=== PATIENT | male | born 1955 | race African-American/Black ===

== ENCOUNTER 2018-09-26 12:04 | Inpatient (IN) ==
[2018-09-26] MEDS ORDERED: FUROSEMIDE 100 MG/10 ML VIAL IV STA (12:31)
[2018-09-26 13:37] LABS: Basophils % 0.9 % (0.0-0.8); Eosinophils # 0.1 10*3/uL (0.0-0.87); Eosinophils % 2.3 % (0.00-10.9); Hematocrit 37.5 VOL% (42.0-52.0); Hemoglobin 11.9 GM/DL (14.0-18.0); Immature Granulocytes % 0.2 %; Immature Granulocytes Absolute 0.01 #; Lymphocytes # 0.7 10*3/uL (1.4-4.0); Lymphocytes % 15.4 % (21.2-54.2); Mean Corpuscular HGB Conc 31.7 GM/DL (32-36); Mean Corpuscular Hemoglobin 31 PG (27-34); Mean Corpuscular Volume 96.2 FL (87-102); Mean Platelet Volume 10.7 FL (9.6-12.0); Monocytes # 0.5 10*3/uL (0.11-0.8); Monocytes % 11.6 % (1.7-12.7); Neutrophils # 3.1 10*3/uL (1.4-7.4); Neutrophils % 69.6 % (38.7-73.9); Platelet Count 237 T/CUMM (130-400); Red Cell Distribution Width 13.5 % (9.3-17.3); White Blood Count 4.4 T/CUMM (4-12)
[2018-09-26 13:44] LABS: Apearance,Urine Slightly Hazy (Clear); Bacteria,Urine Occasional /HPF (Few); Bilirubin,Urine Negative (Negative); Blood, Urine Small mg/dL (Negative); Glucose,Urine (UA) Negative (Negative); Ketones,Urine Negative (Negative); Mucus,Urine Occasional /LPF (Occasional); Nitrite,Urine Positive (Negative); Protein,Urine 100 MG/DL; RBC,Urine 1 /HPF (0-4); Urine Color Yellow (Yellow); Urine Specific Gravity 1.014 (1.001-1.035); Urine Urobilinogen < 2.0 EU/DL (0.2-1.0); WBC,Urine 3 /HPF (0-6)
[2018-09-26 13:53] LABS: Albumin 3.6 G/DL (3.4-5.0); Bilirubin,Total 1.5 MG/DL (0.2-1.0); Calcium 8.8 MG/DL (8.5-10.1); Osmolality,Calculated 286.1 MOS/KG (273-304); Potassium 3.3 MMOL/L (3.5-5.1); Total Protein 8.5 G/DL (6.4-8.3)
[2018-09-26 14:05] LABS: Lactic Acid 2.1 MMOL/L (0.4-2.0)
[2018-09-26] MEDS ORDERED: FUROSEMIDE 40 MG/4 ML VIAL IV STA (14:43)
[2018-09-26] MEDS ORDERED: ONDANSETRON 4 MG/2 ML VIAL IV PRN (15:36)
[2018-09-26] MEDS ORDERED: diphenhydrAMINE CAP 25 MG CAPSULE PO PRN (15:36)
[2018-09-26] MEDS ORDERED: POTASSIUM CHLORIDE 20 MEQ TABLET PO PRN (15:49)
[2018-09-26] MEDS ORDERED: POTASSIUM CHLORIDE 20 MEQ TABLET PO ONE (15:49)
[2018-09-26] MEDS ORDERED: ENOXAPARIN 40 MG/0.4 ML SYRINGE SUBCUT SCH (16:00)
[2018-09-26] MEDS: PANTOPRAZOLE 40 MG TABLET PO SCH (17:08)
[2018-09-26] MEDS: ASPIRIN 325 MG TABLET PO SCH (17:08)
[2018-09-26] MEDS: LOSARTAN 25 MG TABLET PO SCH ×2 (19:08→21:12)
[2018-09-26] MEDS: FUROSEMIDE 40 MG/4 ML VIAL IV SCH (21:12)
[2018-09-26] MEDS: CARVEDILOL 25 MG TABLET PO SCH (21:12)
[2018-09-26] MEDS: ENOXAPARIN 150 MG/ML SYRINGE SUBCUT SCH (21:31)
[2018-09-27 04:50] LABS: Basophils % 0.7 % (0.0-0.8); Eosinophils # 0.1 10*3/uL (0.0-0.87); Eosinophils % 2.6 % (0.00-10.9); Hematocrit 34.2 VOL% (42.0-52.0); Hemoglobin 11.1 GM/DL (14.0-18.0); Immature Granulocytes % 0.2 %; Immature Granulocytes Absolute 0.01 #; Lymphocytes # 0.7 10*3/uL (1.4-4.0); Lymphocytes % 17.8 % (21.2-54.2); Mean Corpuscular HGB Conc 32.5 GM/DL (32-36); Mean Corpuscular Hemoglobin 31 PG (27-34); Mean Corpuscular Volume 95.5 FL (87-102); Mean Platelet Volume 10.8 FL (9.6-12.0); Monocytes # 0.4 10*3/uL (0.11-0.8); Monocytes % 10.1 % (1.7-12.7); Neutrophils # 2.9 10*3/uL (1.4-7.4); Neutrophils % 68.6 % (38.7-73.9); Platelet Count 215 T/CUMM (130-400); Red Blood Count 3.58 MC/CUMM (3.8-5.5); Red Cell Distribution Width 13.3 % (9.3-17.3); White Blood Count 4.2 T/CUMM (4-12)
[2018-09-27 05:17] LABS: Albumin 2.9 G/DL (3.4-5.0); Bilirubin,Total 1.7 MG/DL (0.2-1.0); Calcium 8.4 MG/DL (8.5-10.1); Osmolality,Calculated 289.8 MOS/KG (273-304); Potassium 3.3 MMOL/L (3.5-5.1); Risk Ratio 2.69; Total Protein 7.4 G/DL (6.4-8.3); VLDL CHOLESTEROL 10.2 MG/DL
[2018-09-27] MEDS: ASPIRIN 325 MG TABLET PO SCH (08:34)
[2018-09-27] MEDS: CARVEDILOL 25 MG TABLET PO SCH ×2 (08:34→16:21)
[2018-09-27] MEDS: PANTOPRAZOLE 40 MG TABLET PO SCH (08:34)
[2018-09-27] MEDS: FUROSEMIDE 40 MG/4 ML VIAL IV SCH ×3 (08:34→20:47)
[2018-09-27] MEDS: ENOXAPARIN 150 MG/ML SYRINGE SUBCUT SCH ×2 (08:37→20:46)
[2018-09-27] MEDS ORDERED: POTASSIUM CHLORIDE 20 MEQ TABLET PO ONE (08:40)
[2018-09-27] MEDS ORDERED: MAGNESIUM SULF RIDER 4 GM in PREMIX 1 EACH IV PRN (08:41)
[2018-09-27] MEDS ORDERED: hydrALAZINE 25 MG TABLET ONE (12:55)
[2018-09-27] MEDS: MULTIVITAMIN (CENTRUM) TABLET PO SCH (12:57)
[2018-09-27] MEDS: BENZONATATE 100 MG CAPSULE PO PRN (12:57)
[2018-09-27] MEDS: THIAMINE 100 MG TABLET PO SCH (12:58)
[2018-09-27] MEDS: FOLIC ACID 1 MG TABLET PO SCH (12:58)
[2018-09-27] MEDS ORDERED: SKIN HEALING OINT (AQUAPHOR) 50 GM TUBE TOP PRN (14:36)
[2018-09-27] MEDS: cefTRIAXone 1,000 MG in SYRINGE 1 EACH IV SCH (15:00)
[2018-09-27] MEDS: MAGNESIUM SULF RIDER 2 GM in PREMIX 1 EACH IV PRN ×2 (16:24→19:12)
[2018-09-28 06:18] LABS: Osmolality,Calculated 289.1 MOS/KG (273-304); Potassium 3.4 MMOL/L (3.5-5.1)
[2018-09-28] MEDS ORDERED: FUROSEMIDE 40 MG/4 ML VIAL IV SCH (08:00)
[2018-09-28] MEDS: MULTIVITAMIN (CENTRUM) TABLET PO SCH (09:31)
[2018-09-28] MEDS: CARVEDILOL 6.25 MG TABLET PO SCH ×2 (09:31→16:00)
[2018-09-28] MEDS: FOLIC ACID 1 MG TABLET PO SCH (09:31)
[2018-09-28] MEDS: PANTOPRAZOLE 40 MG TABLET PO SCH (09:31)
[2018-09-28] MEDS: LOSARTAN 25 MG TABLET PO SCH (09:31)
[2018-09-28] MEDS: ASPIRIN 325 MG TABLET PO SCH (09:31)
[2018-09-28] MEDS: BENZONATATE 100 MG CAPSULE PO PRN (09:31)
[2018-09-28] MEDS: THIAMINE 100 MG TABLET PO SCH (09:31)
[2018-09-28] MEDS: ENOXAPARIN 150 MG/ML SYRINGE SUBCUT SCH (09:38)
[2018-09-28] MEDS: cefTRIAXone 1,000 MG in SYRINGE 1 EACH IV SCH (14:07)
[2018-09-28] MEDS: DOCUSATE SODIUM 100 MG CAPSULE PO PRN (14:07)
[2018-09-28] MEDS: ALFUZOSIN 10 MG TABLET PO SCH (15:56)
[2018-09-28] MEDS: miSOPROStol 200 MCG TABLET PO SCH ×2 (16:02→20:41)
[2018-09-28 17:55] LABS: Apearance,Urine CLOUDY (Clear); Bilirubin,Urine Negative (Negative); Blood, Urine Negative (Negative); Glucose,Urine (UA) Negative (Negative); Hyaline Casts,Urine 4 /LPF (0-3); Ketones,Urine Negative (Negative); Mucus,Urine Occasional /LPF (Occasional); Nitrite,Urine Negative (Negative); Protein,Urine Negative; RBC,Urine 24 /HPF (0-4); Squamous Epithelial Cell,Urine Occasional /HPF (0-10); Urine Color Amber (Yellow); Urine Specific Gravity 1.016 (1.001-1.035); WBC,Urine 12 /HPF (0-6)
[2018-09-28] MEDS: ISOSORBIDE DINITRATE 20 MG TABLET PO SCH (20:41)
[2018-09-29 03:05] LABS: Calcium 7.3 MG/DL (8.5-10.1); Osmolality,Calculated 284.8 MOS/KG (273-304); Potassium 3.7 MMOL/L (3.5-5.1)
[2018-09-29 03:06] LABS: Calcium 7.2 MG/DL (8.5-10.1); Osmolality,Calculated 284.8 MOS/KG (273-304); Potassium 3.7 MMOL/L (3.5-5.1)
[2018-09-29] MEDS: MAGNESIUM SULF RIDER 2 GM in PREMIX 1 EACH IV PRN (03:16)
[2018-09-29] MEDS ORDERED: ACETYLCYSTEINE 600 MG CAPSULE PO SCH (09:00)
[2018-09-29] MEDS: MULTIVITAMIN (CENTRUM) TABLET PO SCH (09:43)
[2018-09-29] MEDS: ASPIRIN 325 MG TABLET PO SCH (09:43)
[2018-09-29] MEDS: ISOSORBIDE DINITRATE 20 MG TABLET PO SCH (09:43)
[2018-09-29] MEDS: miSOPROStol 200 MCG TABLET PO SCH ×2 (09:43→11:55)
[2018-09-29] MEDS: ALFUZOSIN 10 MG TABLET PO SCH (09:43)
[2018-09-29] MEDS: THIAMINE 100 MG TABLET PO SCH (09:44)
[2018-09-29] MEDS: CARVEDILOL 6.25 MG TABLET PO SCH ×2 (09:44→10:27)
[2018-09-29] MEDS: DOCUSATE SODIUM 100 MG CAPSULE PO PRN (09:44)
[2018-09-29] MEDS: PANTOPRAZOLE 40 MG TABLET PO SCH (09:44)
[2018-09-29] MEDS: FOLIC ACID 1 MG TABLET PO SCH (09:44)
[2018-09-29] MEDS ORDERED: SODIUM CHLORIDE 0.9% 1,000 ML IV ONE (10:14)
[2018-09-29 11:03] LABS: ABG Base Excess 6.3 MMOL/L (-2.5-2.5); ABG HCO3 33.9 MMOL/L (20-26); ABG Oxygen Saturation 96.6 % (95-100); ABG PCO2 66.4 MM HG (35-48); ABG PH 7.326 (7.35-7.45); ABG PO2 94.1 MM HG (80-95); ABG TCO2 35.9 MMOL/L (23-27)
[2018-09-29] MEDS: SODIUM BICARB INJ 100 MEQ in DEXTROSE 5% 1,000 ML IV SCH ×2 (11:55→23:42)
[2018-09-29] MEDS ORDERED: MAGNESIUM SULF RIDER 2 GM in PREMIX 1 EACH IV ONE (13:28)
[2018-09-29] MEDS ORDERED: ENOXAPARIN 40 MG/0.4 ML SYRINGE ONE (14:03)
[2018-09-29] MEDS: cefTRIAXone 1,000 MG in SYRINGE 1 EACH IV SCH (14:07)
[2018-09-29] MEDS ORDERED: ENOXAPARIN 150 MG/ML SYRINGE SUBCUT SCH (14:30)
[2018-09-29] MEDS ORDERED: ENOXAPARIN 30 MG/0.3 ML SYRINGE SUBCUT SCH (16:00)
[2018-09-29] MEDS ORDERED: ENOXAPARIN 120 MG/0.8 ML SYRINGE SUBCUT SCH (16:00)
[2018-09-29] MEDS: MAGNESIUM OXIDE 400 MG TABLET PO SCH (20:44)
[2018-09-29 22:16] LABS: Allen Test Positive; Pt O2 Delivery Device BIPAP
[2018-09-29 22:17] LABS: ABG Base Excess 6.4 MMOL/L (-2.5-2.5); ABG HCO3 30.2 MMOL/L (20-26); ABG Oxygen Saturation 93.6 % (95-100); ABG PCO2 52.8 MM HG (35-48); ABG PH 7.398 (7.35-7.45); ABG PO2 67.9 MM HG (80-95); ABG TCO2 29.5 MMOL/L (23-27)
[2018-09-30] MEDS: SODIUM BICARB INJ 100 MEQ in DEXTROSE 5% 1,000 ML IV SCH ×2 (02:24→15:56)
[2018-09-30] MEDS ORDERED: FUROSEMIDE 100 MG/10 ML VIAL IV ONE (02:30)
[2018-09-30 02:44] LABS: Basophils % 0.1 % (0.0-0.8); Eosinophils # 0.1 10*3/uL (0.0-0.87); Eosinophils % 0.3 % (0.00-10.9); Hematocrit 31.1 VOL% (42.0-52.0); Immature Granulocytes % 1.7 %; Immature Granulocytes Absolute 0.32 #; Lymphocytes # 0.7 10*3/uL (1.4-4.0); Lymphocytes % 3.9 % (21.2-54.2); Mean Corpuscular HGB Conc 32.2 GM/DL (32-36); Mean Corpuscular Hemoglobin 31 PG (27-34); Mean Corpuscular Volume 97.5 FL (87-102); Mean Platelet Volume 10.5 FL (9.6-12.0); Monocytes # 1.5 10*3/uL (0.11-0.8); Neutrophils # 16.1 10*3/uL (1.4-7.4); Platelet Count 174 T/CUMM (130-400); Red Blood Count 3.19 MC/CUMM (3.8-5.5); Red Cell Distribution Width 13.3 % (9.3-17.3); White Blood Count 18.7 T/CUMM (4-12)
[2018-09-30 03:15] LABS: Allen Test Positive; Pt O2 Delivery Device BIPAP
[2018-09-30 03:16] LABS: ABG Base Excess 6.3 MMOL/L (-2.5-2.5); ABG HCO3 33.3 MMOL/L (20-26); ABG Oxygen Saturation 98.8 % (95-100); ABG PCO2 61.1 MM HG (35-48); ABG PH 7.354 (7.35-7.45); ABG PO2 159.8 MM HG (80-95); ABG TCO2 35.2 MMOL/L (23-27)
[2018-09-30 03:17] LABS: Calcium 7.4 MG/DL (8.5-10.1); Osmolality,Calculated 285.1 MOS/KG (273-304); Potassium 3.6 MMOL/L (3.5-5.1)
[2018-09-30 03:19] LABS: Albumin 2.4 G/DL (3.4-5.0); Bilirubin,Total 1.1 MG/DL (0.2-1.0); Calcium 7.5 MG/DL (8.5-10.1); Osmolality,Calculated 285.1 MOS/KG (273-304); Potassium 3.6 MMOL/L (3.5-5.1); Total Protein 7.4 G/DL (6.4-8.3)
[2018-09-30 03:25] LABS: Anisocytosis 1+; Band Neutrophils 3 % (0-10); Hypochromasia 1+; Lymphocytes 6 % (20-55); Platelet Estimate Normal; Segmented Neutrophils 88 % (50-85); Total Cells Counted 100
[2018-09-30] MEDS ORDERED: SODIUM CHLORIDE 0.9% 1,000 ML IV SCH (03:30)
[2018-09-30 03:34] LABS: Amorphous Crystals,Urine Occasional /HPF (Few); Apearance,Urine CLOUDY (Clear); Bilirubin,Urine Negative (Negative); Blood, Urine Small mg/dL (Negative); Glucose,Urine (UA) Negative (Negative); Ketones,Urine Negative (Negative); Mucus,Urine Occasional /LPF (Occasional); Nitrite,Urine Negative (Negative); Protein,Urine Negative; RBC,Urine 14 /HPF (0-4); Squamous Epithelial Cell,Urine Occasional /HPF (0-10); Urine Color Amber (Yellow); Urine Specific Gravity 1.015 (1.001-1.035); Urine Urobilinogen < 2.0 EU/DL (0.2-1.0); WBC,Urine 3 /HPF (0-6)
[2018-09-30] MEDS ORDERED: SODIUM CHLORIDE 0.9% 250 ML IV SCH (04:00)
[2018-09-30] MEDS: ALFUZOSIN 10 MG TABLET PO SCH (08:46)
[2018-09-30] MEDS: PANTOPRAZOLE 40 MG TABLET PO SCH (08:46)
[2018-09-30] MEDS: ASPIRIN 325 MG TABLET PO SCH (08:46)
[2018-09-30] MEDS: MAGNESIUM OXIDE 400 MG TABLET PO SCH ×2 (08:46→20:35)
[2018-09-30] MEDS: FOLIC ACID 1 MG TABLET PO SCH (08:46)
[2018-09-30] MEDS: MULTIVITAMIN (CENTRUM) TABLET PO SCH (08:46)
[2018-09-30] MEDS: THIAMINE 100 MG TABLET PO SCH (08:47)
[2018-09-30 11:10] LABS: ABG Base Excess 3.6 MMOL/L (-2.5-2.5); ABG HCO3 27.6 MMOL/L (20-26); ABG Oxygen Saturation 95.9 % (95-100); ABG PH 7.329 (7.35-7.45); ABG PO2 85.8 MM HG (80-95); ABG TCO2 28.2 MMOL/L (23-27); Allen Test Positive; Pt O2 Delivery Device BIPAP
[2018-09-30] MEDS: SODIUM CHLORIDE 0.9% 1,000 ML IV SCH ×3 (13:07→23:01)
[2018-09-30 14:16] LABS: ABG Oxygen Saturation 97.4 % (95-100); ABG PCO2 58.8 MM HG (35-48); ABG PH 7.338 (7.35-7.45); Allen Test Positive; Pt O2 Delivery Device BIPAP
[2018-09-30] MEDS: cefTRIAXone 1,000 MG in SYRINGE 1 EACH IV SCH (14:27)
[2018-09-30] MEDS ORDERED: ENOXAPARIN 150 MG/ML SYRINGE SUBCUT SCH (16:00)
[2018-10-01] MEDS: SODIUM BICARB INJ 100 MEQ in DEXTROSE 5% 1,000 ML IV SCH ×2 (02:48→13:48)
[2018-10-01 04:01] LABS: ABG Base Excess 3.7 MMOL/L (-2.5-2.5); ABG HCO3 27.7 MMOL/L (20-26); ABG Oxygen Saturation 98.4 % (95-100); ABG PCO2 58.7 MM HG (35-48); ABG TCO2 28.3 MMOL/L (23-27); Allen Test Positive
[2018-10-01 05:59] LABS: Basophils % 0.1 % (0.0-0.8); Eosinophils # 0.1 10*3/uL (0.0-0.87); Eosinophils % 0.8 % (0.00-10.9); Hematocrit 29.4 VOL% (42.0-52.0); Hemoglobin 9.4 GM/DL (14.0-18.0); Immature Granulocytes % 0.9 %; Immature Granulocytes Absolute 0.12 #; Lymphocytes # 0.6 10*3/uL (1.4-4.0); Lymphocytes % 4.1 % (21.2-54.2); Mean Corpuscular Hemoglobin 30 PG (27-34); Mean Corpuscular Volume 94.8 FL (87-102); Mean Platelet Volume 10.9 FL (9.6-12.0); Monocytes # 1.4 10*3/uL (0.11-0.8); Monocytes % 10.3 % (1.7-12.7); Neutrophils # 11.1 10*3/uL (1.4-7.4); Neutrophils % 83.8 % (38.7-73.9); Platelet Count 191 T/CUMM (130-400); Red Cell Distribution Width 13.2 % (9.3-17.3); White Blood Count 13.3 T/CUMM (4-12)
[2018-10-01] MEDS: ACETAMINOPHEN 325 MG TABLET PO PRN (06:03)
[2018-10-01 06:05] LABS: Calcium 7.6 MG/DL (8.5-10.1); Potassium 3.4 MMOL/L (3.5-5.1)
[2018-10-01 06:28] LABS: Band Neutrophils 1 % (0-10); Eosinophils 2 % (0-10); Hypochromasia 1+; Lymphocytes 1 % (20-55); Ovalocytes Slight; Platelet Estimate Adequate; Segmented Neutrophils 91 % (50-85); Total Cells Counted 100
[2018-10-01 07:37] LABS: Hepatitis A Ab IgM Quant 0.16 Index; Hepatitis A Ab IgM Result Negative (Negative); Hepatitis B Core IgM Quant < 0.05 Index; Hepatitis B Core IgM Result Negative (Negative); Hepatitis B Surface Ag Quant 0.11 Index; Hepatitis B Surface Ag Result Negative (Negative); Hepatitis C Virus Ab Quant 0.06 Index; Hepatitis C Virus Ab Result Negative (Negative)
[2018-10-01] MEDS: POTASSIUM CHLORIDE 20 MEQ TABLET PO SCH ×2 (09:09→21:01)
[2018-10-01] MEDS: ENOXAPARIN 30 MG/0.3 ML SYRINGE SUBCUT SCH (09:09)
[2018-10-01] MEDS: ALFUZOSIN 10 MG TABLET PO SCH (09:09)
[2018-10-01] MEDS: PANTOPRAZOLE 40 MG TABLET PO SCH (09:10)
[2018-10-01] MEDS: MAGNESIUM OXIDE 400 MG TABLET PO SCH (09:10)
[2018-10-01] MEDS: FOLIC ACID 1 MG TABLET PO SCH (09:10)
[2018-10-01] MEDS: THIAMINE 100 MG TABLET PO SCH (09:10)
[2018-10-01] MEDS: MULTIVITAMIN (CENTRUM) TABLET PO SCH (09:10)
[2018-10-01] MEDS: ASPIRIN 325 MG TABLET PO SCH (09:10)
[2018-10-01] MEDS: SODIUM CHLORIDE 0.9% 1,000 ML IV SCH ×2 (09:17→19:31)
[2018-10-01] MEDS: cefTRIAXone 1,000 MG in SYRINGE 1 EACH IV SCH (15:10)
[2018-10-02] MEDS: MAGNESIUM OXIDE 400 MG TABLET PO SCH ×3 (00:19→20:48)
[2018-10-02] MEDS: SODIUM BICARB INJ 100 MEQ in DEXTROSE 5% 1,000 ML IV SCH ×3 (00:19→20:23)
[2018-10-02 03:38] LABS: Allen Test Positive; Pt O2 Delivery Device Venturi Mask
[2018-10-02 03:39] LABS: ABG Base Excess 1.9 MMOL/L (-2.5-2.5); ABG HCO3 26.1 MMOL/L (20-26); ABG PCO2 68.8 MM HG (35-48); ABG PH 7.257 (7.35-7.45); ABG TCO2 28.4 MMOL/L (23-27)
[2018-10-02 05:12] LABS: Basophils % 0.2 % (0.0-0.8); Eosinophils # 0.1 10*3/uL (0.0-0.87); Eosinophils % 1.4 % (0.00-10.9); Hematocrit 31.1 VOL% (42.0-52.0); Hemoglobin 9.8 GM/DL (14.0-18.0); Immature Granulocytes % 1.5 %; Immature Granulocytes Absolute 0.15 #; Lymphocytes # 0.4 10*3/uL (1.4-4.0); Lymphocytes % 3.6 % (21.2-54.2); Mean Corpuscular HGB Conc 31.5 GM/DL (32-36); Mean Corpuscular Hemoglobin 31 PG (27-34); Mean Corpuscular Volume 96.9 FL (87-102); Mean Platelet Volume 10.7 FL (9.6-12.0); Monocytes # 1.3 10*3/uL (0.11-0.8); Monocytes % 12.5 % (1.7-12.7); Neutrophils # 8.3 10*3/uL (1.4-7.4); Neutrophils % 80.8 % (38.7-73.9); Platelet Count 198 T/CUMM (130-400); Red Blood Count 3.21 MC/CUMM (3.8-5.5); Red Cell Distribution Width 13.3 % (9.3-17.3); White Blood Count 10.2 T/CUMM (4-12)
[2018-10-02 05:25] LABS: Calcium 7.5 MG/DL (8.5-10.1); Osmolality,Calculated 298.4 MOS/KG (273-304); Potassium 4.1 MMOL/L (3.5-5.1)
[2018-10-02] MEDS: SODIUM CHLORIDE 0.9% 1,000 ML IV SCH ×2 (05:31→15:22)
[2018-10-02 05:45] LABS: Eosinophils 3 % (0-10); Hypochromasia 1+; Lymphocytes 4 % (20-55); Ovalocytes Slight; Platelet Estimate Adequate; Segmented Neutrophils 84 % (50-85); Total Cells Counted 100
[2018-10-02] MEDS: ACETAMINOPHEN 325 MG TABLET PO PRN (06:38)
[2018-10-02] MEDS: THIAMINE 100 MG TABLET PO SCH (10:57)
[2018-10-02] MEDS: MULTIVITAMIN (CENTRUM) TABLET PO SCH (10:57)
[2018-10-02] MEDS: DOCUSATE SODIUM 100 MG CAPSULE PO PRN (10:57)
[2018-10-02] MEDS: PANTOPRAZOLE 40 MG TABLET PO SCH (10:57)
[2018-10-02] MEDS: ASPIRIN 325 MG TABLET PO SCH (10:58)
[2018-10-02] MEDS: ALFUZOSIN 10 MG TABLET PO SCH (10:58)
[2018-10-02] MEDS: guaiFENesin/DM ER 600-30 MG TABLET PO PRN (10:58)
[2018-10-02] MEDS: ENOXAPARIN 30 MG/0.3 ML SYRINGE SUBCUT SCH (10:58)
[2018-10-02] MEDS: FOLIC ACID 1 MG TABLET PO SCH (10:58)
[2018-10-02 13:57] LABS: ABG Base Excess 2.2 MMOL/L (-2.5-2.5); ABG HCO3 26.4 MMOL/L (20-26); ABG TCO2 29.3 MMOL/L (23-27); Allen Test Positive; Pt O2 Delivery Device Venturi Mask
[2018-10-02 14:08] LABS: ABG PCO2 74.4 MM HG (35-48)
[2018-10-02] MEDS: cefTRIAXone 1,000 MG in SYRINGE 1 EACH IV SCH (15:18)
[2018-10-02] MEDS: CARVEDILOL 3.125 MG TABLET PO SCH (20:48)
[2018-10-03 01:40] LABS: ABG Base Excess 3.9 MMOL/L (-2.5-2.5); ABG HCO3 27.9 MMOL/L (20-26); ABG Oxygen Saturation 97.5 % (95-100); ABG PH 7.273 (7.35-7.45); ABG TCO2 30.3 MMOL/L (23-27); Allen Test Positive; Pt O2 Delivery Device Venturi Mask
[2018-10-03 01:41] LABS: ABG PCO2 70.8 MM HG (35-48)
[2018-10-03] MEDS: SODIUM CHLORIDE 0.9% 1,000 ML IV SCH ×2 (02:30→12:30)
[2018-10-03 04:46] LABS: ABG Base Excess 5.4 MMOL/L (-2.5-2.5); ABG Oxygen Saturation 93.8 % (95-100); ABG PCO2 66.2 MM HG (35-48); ABG PH 7.316 (7.35-7.45); ABG PO2 75.1 MM HG (80-95); ABG TCO2 35.1 MMOL/L (23-27); Allen Test Positive; Pt O2 Delivery Device BIPAP
[2018-10-03 05:11] LABS: Basophils % 0.3 % (0.0-0.8); Eosinophils # 0.2 10*3/uL (0.0-0.87); Eosinophils % 1.7 % (0.00-10.9); Hematocrit 30.6 VOL% (42.0-52.0); Hemoglobin 9.5 GM/DL (14.0-18.0); Immature Granulocytes % 2.8 %; Immature Granulocytes Absolute 0.26 #; Lymphocytes # 0.5 10*3/uL (1.4-4.0); Lymphocytes % 5.7 % (21.2-54.2); Mean Corpuscular Hemoglobin 30 PG (27-34); Mean Corpuscular Volume 98.1 FL (87-102); Mean Platelet Volume 10.3 FL (9.6-12.0); Monocytes # 1.2 10*3/uL (0.11-0.8); Monocytes % 13.3 % (1.7-12.7); Neutrophils # 7.1 10*3/uL (1.4-7.4); Neutrophils % 76.2 % (38.7-73.9); Platelet Count 216 T/CUMM (130-400); Red Blood Count 3.12 MC/CUMM (3.8-5.5); Red Cell Distribution Width 13.4 % (9.3-17.3); White Blood Count 9.3 T/CUMM (4-12)
[2018-10-03 05:22] LABS: Calcium 8.6 MG/DL (8.5-10.1); Osmolality,Calculated 298.3 MOS/KG (273-304)
[2018-10-03] MEDS: SODIUM BICARB INJ 100 MEQ in DEXTROSE 5% 1,000 ML IV SCH ×2 (06:51→17:51)
[2018-10-03] MEDS: FOLIC ACID 1 MG TABLET PO SCH (10:14)
[2018-10-03] MEDS: THIAMINE 100 MG TABLET PO SCH (10:14)
[2018-10-03] MEDS: MAGNESIUM OXIDE 400 MG TABLET PO SCH ×2 (10:14→21:34)
[2018-10-03] MEDS: MULTIVITAMIN (CENTRUM) TABLET PO SCH (10:14)
[2018-10-03] MEDS: ENOXAPARIN 30 MG/0.3 ML SYRINGE SUBCUT SCH (10:14)
[2018-10-03] MEDS: ASPIRIN 325 MG TABLET PO SCH (10:14)
[2018-10-03] MEDS: ALFUZOSIN 10 MG TABLET PO SCH (10:14)
[2018-10-03] MEDS: CARVEDILOL 3.125 MG TABLET PO SCH (10:14)
[2018-10-03] MEDS: PANTOPRAZOLE 40 MG TABLET PO SCH (10:14)
[2018-10-03 10:57] LABS: ABG Base Excess 4.2 MMOL/L (-2.5-2.5); ABG HCO3 28.1 MMOL/L (20-26); ABG Oxygen Saturation 93.6 % (95-100); ABG PCO2 64.5 MM HG (35-48); ABG PH 7.306 (7.35-7.45); ABG PO2 71.5 MM HG (80-95); ABG TCO2 29.6 MMOL/L (23-27); Allen Test Positive; Pt O2 Delivery Device Venturi Mask
[2018-10-03] MEDS: ISOSORBIDE DINITRATE 20 MG TABLET PO SCH ×2 (14:36→21:34)
[2018-10-03] MEDS: cefTRIAXone 1,000 MG in SYRINGE 1 EACH IV SCH (14:36)
[2018-10-03 15:26] LABS: Allen Test Positive; Pt O2 Delivery Device Venturi Mask
[2018-10-03 15:27] LABS: ABG Base Excess 4.9 MMOL/L (-2.5-2.5); ABG HCO3 28.7 MMOL/L (20-26); ABG Oxygen Saturation 94.6 % (95-100); ABG PH 7.325 (7.35-7.45); ABG PO2 73.9 MM HG (80-95)
[2018-10-03] MEDS: CARVEDILOL 6.25 MG TABLET PO SCH (21:34)
[2018-10-04 05:03] LABS: Pt O2 Delivery Device BIPAP
[2018-10-04 05:04] LABS: ABG Base Excess 5.2 MMOL/L (-2.5-2.5); ABG HCO3 32.8 MMOL/L (20-26); ABG Oxygen Saturation 94.2 % (95-100); ABG PCO2 65.8 MM HG (35-48); ABG PH 7.315 (7.35-7.45); ABG PO2 79.3 MM HG (80-95); ABG TCO2 34.8 MMOL/L (23-27)
[2018-10-04 05:26] LABS: Calcium 8.7 MG/DL (8.5-10.1); Potassium 4.2 MMOL/L (3.5-5.1)
[2018-10-04 05:29] LABS: Basophils % 0.2 % (0.0-0.8); Eosinophils # 0.2 10*3/uL (0.0-0.87); Eosinophils % 2.1 % (0.00-10.9); Hematocrit 29.4 VOL% (42.0-52.0); Hemoglobin 9.2 GM/DL (14.0-18.0); Immature Granulocytes % 2.2 %; Immature Granulocytes Absolute 0.19 #; Lymphocytes # 0.7 10*3/uL (1.4-4.0); Lymphocytes % 8.1 % (21.2-54.2); Mean Corpuscular HGB Conc 31.3 GM/DL (32-36); Mean Corpuscular Hemoglobin 31 PG (27-34); Mean Platelet Volume 10.2 FL (9.6-12.0); Monocytes # 1.1 10*3/uL (0.11-0.8); Monocytes % 12.9 % (1.7-12.7); Neutrophils # 6.4 10*3/uL (1.4-7.4); Neutrophils % 74.5 % (38.7-73.9); Platelet Count 248 T/CUMM (130-400); Red Cell Distribution Width 13.5 % (9.3-17.3); White Blood Count 8.6 T/CUMM (4-12)
[2018-10-04 07:41] LABS: ABG Base Excess 4.9 MMOL/L (-2.5-2.5); ABG HCO3 28.7 MMOL/L (20-26); ABG Oxygen Saturation 90.4 % (95-100); ABG PCO2 61.6 MM HG (35-48); ABG PH 7.328 (7.35-7.45); ABG TCO2 29.8 MMOL/L (23-27); Allen Test Positive; Pt O2 Delivery Device Venturi Mask
[2018-10-04] MEDS: ENOXAPARIN 30 MG/0.3 ML SYRINGE SUBCUT SCH (08:31)
[2018-10-04] MEDS: ALFUZOSIN 10 MG TABLET PO SCH (08:32)
[2018-10-04] MEDS: THIAMINE 100 MG TABLET PO SCH (08:32)
[2018-10-04] MEDS: FOLIC ACID 1 MG TABLET PO SCH (08:32)
[2018-10-04] MEDS: MULTIVITAMIN (CENTRUM) TABLET PO SCH (08:32)
[2018-10-04] MEDS: ASPIRIN 325 MG TABLET PO SCH (08:32)
[2018-10-04] MEDS: ISOSORBIDE DINITRATE 20 MG TABLET PO SCH ×3 (08:32→21:47)
[2018-10-04] MEDS: CARVEDILOL 6.25 MG TABLET PO SCH ×2 (08:32→21:48)
[2018-10-04] MEDS: MAGNESIUM OXIDE 400 MG TABLET PO SCH ×2 (08:32→21:47)
[2018-10-04] MEDS: PANTOPRAZOLE 40 MG TABLET PO SCH (08:32)
[2018-10-04] MEDS: POLYETHYLENE GLYCOL POWDER 17 GM PACK PO SCH (11:49)
[2018-10-04] MEDS: DOCUSATE SODIUM 100 MG CAPSULE PO SCH (21:47)
[2018-10-05 03:28] LABS: Basophils % 0.3 % (0.0-0.8); Eosinophils # 0.2 10*3/uL (0.0-0.87); Eosinophils % 2.6 % (0.00-10.9); Hematocrit 28.7 VOL% (42.0-52.0); Hemoglobin 8.8 GM/DL (14.0-18.0); Immature Granulocytes % 4.2 %; Immature Granulocytes Absolute 0.32 #; Lymphocytes # 0.7 10*3/uL (1.4-4.0); Lymphocytes % 9.5 % (21.2-54.2); Mean Corpuscular HGB Conc 30.7 GM/DL (32-36); Mean Corpuscular Hemoglobin 30 PG (27-34); Mean Corpuscular Volume 98.6 FL (87-102); Mean Platelet Volume 9.8 FL (9.6-12.0); Monocytes # 1.2 10*3/uL (0.11-0.8); Monocytes % 15.5 % (1.7-12.7); NRBC # 0.02 10*3/uL; Neutrophils # 5.1 10*3/uL (1.4-7.4); Neutrophils % 67.9 % (38.7-73.9); Platelet Count 264 T/CUMM (130-400); Red Blood Count 2.91 MC/CUMM (3.8-5.5); Red Cell Distribution Width 13.6 % (9.3-17.3); White Blood Count 7.6 T/CUMM (4-12)
[2018-10-05 03:46] LABS: Calcium 8.6 MG/DL (8.5-10.1); Potassium 4.4 MMOL/L (3.5-5.1)
[2018-10-05 04:20] LABS: Eosinophils 6 % (0-10); Lymphocytes 7 % (20-55); Segmented Neutrophils 76 % (50-85); Total Cells Counted 100
[2018-10-05 04:21] LABS: Hypochromasia Slight; Platelet Estimate Normal
[2018-10-05 04:22] LABS: Ovalocytes 1+; Polychromasia Few
[2018-10-05] MEDS: PANTOPRAZOLE 40 MG TABLET PO SCH (08:26)
[2018-10-05] MEDS: CARVEDILOL 6.25 MG TABLET PO SCH ×2 (08:26→21:40)
[2018-10-05] MEDS: MAGNESIUM OXIDE 400 MG TABLET PO SCH ×2 (08:26→21:40)
[2018-10-05] MEDS: ASPIRIN 325 MG TABLET PO SCH (08:26)
[2018-10-05] MEDS: DOCUSATE SODIUM 100 MG CAPSULE PO SCH ×2 (08:26→21:40)
[2018-10-05] MEDS: THIAMINE 100 MG TABLET PO SCH (08:26)
[2018-10-05] MEDS: ISOSORBIDE DINITRATE 20 MG TABLET PO SCH ×3 (08:26→21:40)
[2018-10-05] MEDS: ALFUZOSIN 10 MG TABLET PO SCH (08:26)
[2018-10-05] MEDS: MULTIVITAMIN (CENTRUM) TABLET PO SCH (08:26)
[2018-10-05] MEDS: FOLIC ACID 1 MG TABLET PO SCH (08:26)
[2018-10-05] MEDS: ENOXAPARIN 40 MG/0.4 ML SYRINGE SUBCUT SCH (08:27)
[2018-10-05] MEDS: POLYETHYLENE GLYCOL POWDER 17 GM PACK PO SCH (08:27)
[2018-10-06 04:05] LABS: Basophils % 0.6 % (0.0-0.8); Eosinophils # 0.2 10*3/uL (0.0-0.87); Eosinophils % 3.2 % (0.00-10.9); Hematocrit 30.1 VOL% (42.0-52.0); Hemoglobin 9.2 GM/DL (14.0-18.0); Immature Granulocytes % 3.6 %; Immature Granulocytes Absolute 0.26 #; Lymphocytes # 0.6 10*3/uL (1.4-4.0); Lymphocytes % 8.7 % (21.2-54.2); Mean Corpuscular HGB Conc 30.6 GM/DL (32-36); Mean Corpuscular Hemoglobin 30 PG (27-34); Mean Corpuscular Volume 97.7 FL (87-102); Mean Platelet Volume 9.8 FL (9.6-12.0); Monocytes % 13.6 % (1.7-12.7); NRBC # 0.03 10*3/uL; Neutrophils # 5.1 10*3/uL (1.4-7.4); Neutrophils % 70.3 % (38.7-73.9); Platelet Count 290 T/CUMM (130-400); Red Blood Count 3.08 MC/CUMM (3.8-5.5); Red Cell Distribution Width 13.4 % (9.3-17.3); White Blood Count 7.2 T/CUMM (4-12)
[2018-10-06 04:33] LABS: Potassium 4.5 MMOL/L (3.5-5.1)
[2018-10-06] MEDS ORDERED: cloNIDine 0.1 MG TABLET PO PRN (07:49)
[2018-10-06] MEDS: FOLIC ACID 1 MG TABLET PO SCH (08:25)
[2018-10-06] MEDS: MULTIVITAMIN (CENTRUM) TABLET PO SCH (08:25)
[2018-10-06] MEDS: ALFUZOSIN 10 MG TABLET PO SCH (08:25)
[2018-10-06] MEDS: MAGNESIUM OXIDE 400 MG TABLET PO SCH ×2 (08:25→20:18)
[2018-10-06] MEDS: CARVEDILOL 6.25 MG TABLET PO SCH ×2 (08:25→20:18)
[2018-10-06] MEDS: ASPIRIN 325 MG TABLET PO SCH (08:25)
[2018-10-06] MEDS: POLYETHYLENE GLYCOL POWDER 17 GM PACK PO SCH (08:25)
[2018-10-06] MEDS: ISOSORBIDE DINITRATE 20 MG TABLET PO SCH ×3 (08:25→20:18)
[2018-10-06] MEDS: DOCUSATE SODIUM 100 MG CAPSULE PO SCH ×2 (08:25→20:18)
[2018-10-06] MEDS: ENOXAPARIN 40 MG/0.4 ML SYRINGE SUBCUT SCH (08:25)
[2018-10-06] MEDS: THIAMINE 100 MG TABLET PO SCH (08:26)
[2018-10-06] MEDS: PANTOPRAZOLE 40 MG TABLET PO SCH (08:26)
[2018-10-06] MEDS ORDERED: amLODIPine 5 MG TABLET PO SCH (09:00)
[2018-10-07 04:11] LABS: Basophils % 0.3 % (0.0-0.8); Eosinophils # 0.2 10*3/uL (0.0-0.87); Eosinophils % 3.1 % (0.00-10.9); Hematocrit 28.5 VOL% (42.0-52.0); Hemoglobin 8.6 GM/DL (14.0-18.0); Immature Granulocytes % 4.2 %; Immature Granulocytes Absolute 0.29 #; Lymphocytes # 0.7 10*3/uL (1.4-4.0); Lymphocytes % 10.8 % (21.2-54.2); Mean Corpuscular HGB Conc 30.2 GM/DL (32-36); Mean Corpuscular Hemoglobin 30 PG (27-34); Mean Corpuscular Volume 100.4 FL (87-102); Mean Platelet Volume 9.5 FL (9.6-12.0); Monocytes # 0.8 10*3/uL (0.11-0.8); Monocytes % 12.2 % (1.7-12.7); NRBC # 0.05 10*3/uL; Neutrophils # 4.7 10*3/uL (1.4-7.4); Neutrophils % 69.4 % (38.7-73.9); Platelet Count 284 T/CUMM (130-400); Red Blood Count 2.84 MC/CUMM (3.8-5.5); Red Cell Distribution Width 13.4 % (9.3-17.3); White Blood Count 6.8 T/CUMM (4-12)
[2018-10-07 04:27] LABS: Osmolality,Calculated 295.1 MOS/KG (273-304); Potassium 4.7 MMOL/L (3.5-5.1)
[2018-10-07 04:52] LABS: Band Neutrophils 1 % (0-10); Eosinophils 6 % (0-10); Hypochromasia 1+; Lymphocytes 21 % (20-55); Platelet Estimate Normal; Segmented Neutrophils 60 % (50-85); Total Cells Counted 100
[2018-10-07 04:53] LABS: Microcytosis 1+
[2018-10-07 09:23] LABS: ABG Base Excess 6.4 MMOL/L (-2.5-2.5); ABG HCO3 30.3 MMOL/L (20-26); ABG Oxygen Saturation 98.2 % (95-100); ABG PH 7.302 (7.35-7.45); ABG TCO2 32.2 MMOL/L (23-27)
[2018-10-07] MEDS: POLYETHYLENE GLYCOL POWDER 17 GM PACK PO SCH (09:28)
[2018-10-07] MEDS: ENOXAPARIN 40 MG/0.4 ML SYRINGE SUBCUT SCH (09:28)
[2018-10-07] MEDS: MULTIVITAMIN (CENTRUM) TABLET PO SCH (09:29)
[2018-10-07] MEDS: ASPIRIN 325 MG TABLET PO SCH (09:29)
[2018-10-07] MEDS: THIAMINE 100 MG TABLET PO SCH (09:29)
[2018-10-07] MEDS: ISOSORBIDE DINITRATE 20 MG TABLET PO SCH ×3 (09:29→21:38)
[2018-10-07] MEDS: amLODIPine 10 MG TABLET PO SCH (09:30)
[2018-10-07] MEDS: PANTOPRAZOLE 40 MG TABLET PO SCH (09:30)
[2018-10-07] MEDS: FOLIC ACID 1 MG TABLET PO SCH (09:30)
[2018-10-07] MEDS: MAGNESIUM OXIDE 400 MG TABLET PO SCH ×2 (09:30→21:38)
[2018-10-07] MEDS: DOCUSATE SODIUM 100 MG CAPSULE PO SCH ×2 (09:30→21:38)
[2018-10-07] MEDS: ALFUZOSIN 10 MG TABLET PO SCH (09:30)
[2018-10-07] MEDS: CARVEDILOL 6.25 MG TABLET PO SCH ×2 (09:31→21:38)
[2018-10-07 09:44] LABS: ABG PCO2 70.8 MM HG (35-48)
[2018-10-07] MEDS: ACETYLCYSTEINE 600 MG CAPSULE PO SCH ×2 (10:44→21:38)
[2018-10-07] MEDS ORDERED: POTASSIUM CHLORIDE RIDER 10 MEQ in PREMIX 1 EACH IV PRN (10:48)
[2018-10-07] MEDS ORDERED: MAGNESIUM SULF RIDER 2 GM in PREMIX 1 EACH IV PRN (10:48)
[2018-10-07] MEDS: miSOPROStol 200 MCG TABLET PO SCH ×3 (11:58→21:38)
[2018-10-07] MEDS ORDERED: INFLUENZA VIRUS VACCINE 0.5 ML SYRINGE IM ONE (12:00)
[2018-10-08 01:56] LABS: Basophils % 0.4 % (0.0-0.8); Eosinophils # 0.2 10*3/uL (0.0-0.87); Eosinophils % 3.3 % (0.00-10.9); Hematocrit 29.8 VOL% (42.0-52.0); Immature Granulocytes % 4.5 %; Lymphocytes # 0.8 10*3/uL (1.4-4.0); Lymphocytes % 12.5 % (21.2-54.2); Mean Corpuscular HGB Conc 30.2 GM/DL (32-36); Mean Corpuscular Hemoglobin 31 PG (27-34); Mean Corpuscular Volume 102.8 FL (87-102); Mean Platelet Volume 9.7 FL (9.6-12.0); Monocytes # 0.7 10*3/uL (0.11-0.8); Monocytes % 9.9 % (1.7-12.7); NRBC # 0.02 10*3/uL; Neutrophils # 4.7 10*3/uL (1.4-7.4); Neutrophils % 69.4 % (38.7-73.9); Platelet Count 288 T/CUMM (130-400); Red Cell Distribution Width 13.7 % (9.3-17.3); White Blood Count 6.7 T/CUMM (4-12)
[2018-10-08 02:52] LABS: Calcium 8.9 MG/DL (8.5-10.1); Potassium 5.7 MMOL/L (3.5-5.1)
[2018-10-08 03:43] LABS: Platelet Estimate Adequate
[2018-10-08 04:37] LABS: ABG Base Excess 7.8 MMOL/L (-2.5-2.5); ABG HCO3 31.6 MMOL/L (20-26); ABG Oxygen Saturation 98.7 % (95-100); ABG TCO2 33.3 MMOL/L (23-27); Allen Test Positive; Pt O2 Delivery Device Other
[2018-10-08 04:45] LABS: ABG PCO2 69.9 MM HG (35-48)
[2018-10-08] MEDS: VANCOMYCIN 50 MG/ML 60 ML/BOTTLE PO SCH ×3 (06:04→16:59)
[2018-10-08] MEDS ORDERED: SODIUM BICARB INJ 150 MEQ in DEXTROSE 5% 850 ML IV SCH (07:00)
[2018-10-08] MEDS: CARVEDILOL 6.25 MG TABLET PO SCH ×2 (09:25→21:47)
[2018-10-08] MEDS: ASPIRIN 325 MG TABLET PO SCH (09:25)
[2018-10-08] MEDS: ENOXAPARIN 40 MG/0.4 ML SYRINGE SUBCUT SCH (09:25)
[2018-10-08] MEDS: ACETYLCYSTEINE 600 MG CAPSULE PO SCH ×2 (09:25→21:47)
[2018-10-08] MEDS: miSOPROStol 200 MCG TABLET PO SCH ×4 (09:26→21:47)
[2018-10-08] MEDS: amLODIPine 10 MG TABLET PO SCH (09:26)
[2018-10-08] MEDS: DOCUSATE SODIUM 100 MG CAPSULE PO SCH ×3 (09:31→21:49)
[2018-10-08] MEDS: MULTIVITAMIN (CENTRUM) TABLET PO SCH (09:31)
[2018-10-08] MEDS: FOLIC ACID 1 MG TABLET PO SCH (09:31)
[2018-10-08] MEDS: PANTOPRAZOLE 40 MG TABLET PO SCH (09:32)
[2018-10-08] MEDS: MAGNESIUM OXIDE 400 MG TABLET PO SCH ×2 (09:32→21:48)
[2018-10-08] MEDS: POLYETHYLENE GLYCOL POWDER 17 GM PACK PO SCH (09:32)
[2018-10-08] MEDS: ALFUZOSIN 10 MG TABLET PO SCH (09:32)
[2018-10-08] MEDS: ISOSORBIDE DINITRATE 20 MG TABLET PO SCH ×3 (09:32→21:47)
[2018-10-08] MEDS: THIAMINE 100 MG TABLET PO SCH (09:33)
[2018-10-08] MEDS ORDERED: diphenhydrAMINE CAP 25 MG CAPSULE PO ONE (12:00)
[2018-10-08] MEDS ORDERED: DIAZEPAM 5 MG TABLET PO ONE (12:00)
[2018-10-08] MEDS ORDERED: LIDOCAINE 1% 20 ML VIAL ONE (14:38)
[2018-10-08] MEDS ORDERED: MIDAZOLAM 2 MG/2 ML VIAL ONE (14:39)
[2018-10-08] MEDS ORDERED: HYDROmorphone 2 MG/1 ML VIAL ONE (14:39)
[2018-10-08] MEDS ORDERED: NITROGLYCERIN SL 0.4 MG TABLET SL ONE (15:10)
[2018-10-08] MEDS ORDERED: HYDROmorphone 2 MG/1 ML VIAL IV PRN (15:29)
[2018-10-08] MEDS: hydrALAZINE 25 MG TABLET PO SCH ×2 (16:59→21:47)
[2018-10-08] MEDS: CHOLESTYRAMINE 4 GM PACK PO SCH (21:47)
[2018-10-09] MEDS: VANCOMYCIN 50 MG/ML 60 ML/BOTTLE PO SCH ×4 (01:12→18:33)
[2018-10-09 04:14] LABS: Allen Test Positive; Pt O2 Delivery Device Other
[2018-10-09 04:15] LABS: ABG Base Excess 11.8 MMOL/L (-2.5-2.5); ABG HCO3 38.9 MMOL/L (20-26); ABG Oxygen Saturation 95.6 % (95-100); ABG PCO2 67.1 MM HG (35-48); ABG PH 7.381 (7.35-7.45); ABG PO2 82.6 MM HG (80-95)
[2018-10-09 05:37] LABS: Basophils % 0.2 % (0.0-0.8); Eosinophils # 0.2 10*3/uL (0.0-0.87); Eosinophils % 2.6 % (0.00-10.9); Hematocrit 29.5 VOL% (42.0-52.0); Immature Granulocytes % 1.5 %; Immature Granulocytes Absolute 0.12 #; Lymphocytes # 0.8 10*3/uL (1.4-4.0); Lymphocytes % 9.4 % (21.2-54.2); Mean Corpuscular HGB Conc 30.5 GM/DL (32-36); Mean Corpuscular Hemoglobin 31 PG (27-34); Mean Corpuscular Volume 100.7 FL (87-102); Mean Platelet Volume 9.3 FL (9.6-12.0); Monocytes # 0.9 10*3/uL (0.11-0.8); Monocytes % 11.7 % (1.7-12.7); Neutrophils % 74.6 % (38.7-73.9); Platelet Count 258 T/CUMM (130-400); Red Blood Count 2.93 MC/CUMM (3.8-5.5); Red Cell Distribution Width 13.6 % (9.3-17.3)
[2018-10-09 05:54] LABS: Calcium 9.4 MG/DL (8.5-10.1); Potassium 5.2 MMOL/L (3.5-5.1)
[2018-10-09] MEDS: guaiFENesin/DM ER 600-30 MG TABLET PO PRN (08:26)
[2018-10-09] MEDS: ALFUZOSIN 10 MG TABLET PO SCH (08:26)
[2018-10-09] MEDS: ASPIRIN 325 MG TABLET PO SCH (08:26)
[2018-10-09] MEDS: DOCUSATE SODIUM 100 MG CAPSULE PO SCH ×2 (08:26→21:05)
[2018-10-09] MEDS: ISOSORBIDE DINITRATE 20 MG TABLET PO SCH ×3 (08:26→21:03)
[2018-10-09] MEDS: FOLIC ACID 1 MG TABLET PO SCH (08:26)
[2018-10-09] MEDS: miSOPROStol 200 MCG TABLET PO SCH ×4 (08:26→21:03)
[2018-10-09] MEDS: MULTIVITAMIN (CENTRUM) TABLET PO SCH (08:26)
[2018-10-09] MEDS: CARVEDILOL 6.25 MG TABLET PO SCH ×2 (08:26→21:03)
[2018-10-09] MEDS: MAGNESIUM OXIDE 400 MG TABLET PO SCH ×2 (08:27→21:04)
[2018-10-09] MEDS: BENZONATATE 100 MG CAPSULE PO PRN (08:27)
[2018-10-09] MEDS: hydrALAZINE 25 MG TABLET PO SCH (08:27)
[2018-10-09] MEDS: ENOXAPARIN 40 MG/0.4 ML SYRINGE SUBCUT SCH (08:27)
[2018-10-09] MEDS: THIAMINE 100 MG TABLET PO SCH (08:27)
[2018-10-09] MEDS: amLODIPine 10 MG TABLET PO SCH (08:27)
[2018-10-09] MEDS: CHOLESTYRAMINE 4 GM PACK PO SCH ×2 (08:28→21:03)
[2018-10-09] MEDS: POLYETHYLENE GLYCOL POWDER 17 GM PACK PO SCH (08:28)
[2018-10-09] MEDS: PANTOPRAZOLE 40 MG TABLET PO SCH (08:29)
[2018-10-09] MEDS: ACETYLCYSTEINE 600 MG CAPSULE PO SCH ×2 (08:39→21:03)
[2018-10-09] MEDS ORDERED: CARVEDILOL 6.25 MG TABLET PO SCH (09:37)
[2018-10-09] MEDS ORDERED: FUROSEMIDE 40 MG/4 ML VIAL IV ONE (09:42)
[2018-10-09] MEDS ORDERED: ALUMINUM/MAGNES/SIMETH MAX STR 30 ML UDCUP PO PRN (10:59)
[2018-10-10] MEDS: VANCOMYCIN 50 MG/ML 60 ML/BOTTLE PO SCH ×4 (00:46→18:48)
[2018-10-10 03:35] LABS: ABG Base Excess 13.7 MMOL/L (-2.5-2.5); ABG HCO3 40.9 MMOL/L (20-26); ABG Oxygen Saturation 93.7 % (95-100); ABG PCO2 68.6 MM HG (35-48); ABG PH 7.393 (7.35-7.45); ABG PO2 71.4 MM HG (80-95); Allen Test Positive; Pt O2 Delivery Device Other
[2018-10-10 05:57] LABS: Basophils % 0.4 % (0.0-0.8); Eosinophils # 0.2 10*3/uL (0.0-0.87); Hemoglobin 8.8 GM/DL (14.0-18.0); Immature Granulocytes % 0.9 %; Immature Granulocytes Absolute 0.07 #; Lymphocytes # 0.9 10*3/uL (1.4-4.0); Lymphocytes % 11.5 % (21.2-54.2); Mean Corpuscular HGB Conc 30.3 GM/DL (32-36); Mean Corpuscular Hemoglobin 31 PG (27-34); Mean Platelet Volume 9.1 FL (9.6-12.0); Monocytes # 0.9 10*3/uL (0.11-0.8); Monocytes % 11.3 % (1.7-12.7); Neutrophils # 5.7 10*3/uL (1.4-7.4); Neutrophils % 72.9 % (38.7-73.9); Platelet Count 224 T/CUMM (130-400); Red Blood Count 2.87 MC/CUMM (3.8-5.5); Red Cell Distribution Width 13.3 % (9.3-17.3); White Blood Count 7.8 T/CUMM (4-12)
[2018-10-10 06:09] LABS: Calcium 8.9 MG/DL (8.5-10.1); Potassium 5.1 MMOL/L (3.5-5.1)
[2018-10-10] MEDS: miSOPROStol 200 MCG TABLET PO SCH ×4 (08:49→22:43)
[2018-10-10] MEDS: amLODIPine 10 MG TABLET PO SCH (08:50)
[2018-10-10] MEDS: ACETYLCYSTEINE 600 MG CAPSULE PO SCH ×2 (08:50→22:44)
[2018-10-10] MEDS: ISOSORBIDE DINITRATE 20 MG TABLET PO SCH ×3 (08:50→22:44)
[2018-10-10] MEDS: MULTIVITAMIN (CENTRUM) TABLET PO SCH (08:50)
[2018-10-10] MEDS: ALFUZOSIN 10 MG TABLET PO SCH (08:50)
[2018-10-10] MEDS: MAGNESIUM OXIDE 400 MG TABLET PO SCH ×2 (08:50→22:43)
[2018-10-10] MEDS: ASPIRIN 325 MG TABLET PO SCH (08:50)
[2018-10-10] MEDS: CARVEDILOL 6.25 MG TABLET PO SCH ×2 (08:51→22:46)
[2018-10-10] MEDS: PANTOPRAZOLE 40 MG TABLET PO SCH (08:51)
[2018-10-10] MEDS: THIAMINE 100 MG TABLET PO SCH (08:51)
[2018-10-10] MEDS: CHOLESTYRAMINE 4 GM PACK PO SCH ×2 (08:51→22:38)
[2018-10-10] MEDS: FOLIC ACID 1 MG TABLET PO SCH (08:51)
[2018-10-10] MEDS: ENOXAPARIN 40 MG/0.4 ML SYRINGE SUBCUT SCH (08:51)
[2018-10-10] MEDS: POLYETHYLENE GLYCOL POWDER 17 GM PACK PO SCH (08:52)
[2018-10-10] MEDS: DOCUSATE SODIUM 100 MG CAPSULE PO SCH ×2 (08:52→22:48)
[2018-10-10] MEDS ORDERED: FUROSEMIDE 40 MG TABLET PO SCH (16:00)
[2018-10-10] MEDS: FUROSEMIDE 40 MG/4 ML VIAL IV SCH (16:29)
[2018-10-11] MEDS: VANCOMYCIN 50 MG/ML 60 ML/BOTTLE PO SCH ×4 (02:27→17:52)
[2018-10-11 05:04] LABS: ABG Base Excess 12.3 MMOL/L (-2.5-2.5); ABG HCO3 38.8 MMOL/L (20-26); ABG Oxygen Saturation 96.8 % (95-100); ABG PH 7.414 (7.35-7.45); ABG PO2 91.5 MM HG (80-95); ABG TCO2 40.7 MMOL/L (23-27); Allen Test Positive; Pt O2 Delivery Device Other
[2018-10-11 06:09] LABS: Basophils % 0.3 % (0.0-0.8); Eosinophils # 0.2 10*3/uL (0.0-0.87); Eosinophils % 2.9 % (0.00-10.9); Hematocrit 30.3 VOL% (42.0-52.0); Hemoglobin 9.2 GM/DL (14.0-18.0); Immature Granulocytes Absolute 0.06 #; Lymphocytes # 0.8 10*3/uL (1.4-4.0); Mean Corpuscular HGB Conc 30.4 GM/DL (32-36); Mean Corpuscular Hemoglobin 30 PG (27-34); Mean Corpuscular Volume 98.4 FL (87-102); Mean Platelet Volume 9.3 FL (9.6-12.0); Monocytes # 0.8 10*3/uL (0.11-0.8); Monocytes % 13.4 % (1.7-12.7); Neutrophils # 4.3 10*3/uL (1.4-7.4); Neutrophils % 69.4 % (38.7-73.9); Platelet Count 221 T/CUMM (130-400); Red Blood Count 3.08 MC/CUMM (3.8-5.5); Red Cell Distribution Width 13.4 % (9.3-17.3); White Blood Count 6.3 T/CUMM (4-12)
[2018-10-11 06:22] LABS: Calcium 9.1 MG/DL (8.5-10.1); Osmolality,Calculated 286.1 MOS/KG (273-304); Potassium 4.5 MMOL/L (3.5-5.1)
[2018-10-11] MEDS: ENOXAPARIN 40 MG/0.4 ML SYRINGE SUBCUT SCH (09:32)
[2018-10-11] MEDS: DOCUSATE SODIUM 100 MG CAPSULE PO SCH ×2 (09:35→21:03)
[2018-10-11] MEDS: ASPIRIN 325 MG TABLET PO SCH (09:36)
[2018-10-11] MEDS: MAGNESIUM OXIDE 400 MG TABLET PO SCH ×2 (09:36→20:55)
[2018-10-11] MEDS: MULTIVITAMIN (CENTRUM) TABLET PO SCH (09:36)
[2018-10-11] MEDS: miSOPROStol 200 MCG TABLET PO SCH ×4 (09:36→20:56)
[2018-10-11] MEDS: CARVEDILOL 6.25 MG TABLET PO SCH ×2 (09:37→20:57)
[2018-10-11] MEDS: ISOSORBIDE DINITRATE 20 MG TABLET PO SCH ×3 (09:37→20:56)
[2018-10-11] MEDS: amLODIPine 10 MG TABLET PO SCH (09:37)
[2018-10-11] MEDS: FUROSEMIDE 40 MG/4 ML VIAL IV SCH ×2 (09:37→16:27)
[2018-10-11] MEDS: PANTOPRAZOLE 40 MG TABLET PO SCH (09:37)
[2018-10-11] MEDS: THIAMINE 100 MG TABLET PO SCH (09:37)
[2018-10-11] MEDS: ACETYLCYSTEINE 600 MG CAPSULE PO SCH ×2 (09:43→20:55)
[2018-10-11] MEDS: FOLIC ACID 1 MG TABLET PO SCH (09:43)
[2018-10-11] MEDS: POLYETHYLENE GLYCOL POWDER 17 GM PACK PO SCH (09:44)
[2018-10-11] MEDS: ALFUZOSIN 10 MG TABLET PO SCH (09:44)
[2018-10-11] MEDS: CHOLESTYRAMINE 4 GM PACK PO SCH ×2 (09:46→20:54)
[2018-10-12 04:21] LABS: Basophils % 0.6 % (0.0-0.8); Eosinophils # 0.2 10*3/uL (0.0-0.87); Eosinophils % 3.8 % (0.00-10.9); Hematocrit 29.8 VOL% (42.0-52.0); Hemoglobin 9.3 GM/DL (14.0-18.0); Immature Granulocytes % 0.8 %; Immature Granulocytes Absolute 0.04 #; Lymphocytes # 0.9 10*3/uL (1.4-4.0); Lymphocytes % 17.8 % (21.2-54.2); Mean Corpuscular HGB Conc 31.2 GM/DL (32-36); Mean Corpuscular Hemoglobin 30 PG (27-34); Mean Corpuscular Volume 97.1 FL (87-102); Mean Platelet Volume 9.7 FL (9.6-12.0); Monocytes # 0.8 10*3/uL (0.11-0.8); Monocytes % 14.2 % (1.7-12.7); Neutrophils # 3.3 10*3/uL (1.4-7.4); Neutrophils % 62.8 % (38.7-73.9); Platelet Count 223 T/CUMM (130-400); Red Blood Count 3.07 MC/CUMM (3.8-5.5); Red Cell Distribution Width 13.3 % (9.3-17.3); White Blood Count 5.3 T/CUMM (4-12)
[2018-10-12 04:38] LABS: Calcium 9.2 MG/DL (8.5-10.1); Osmolality,Calculated 288.1 MOS/KG (273-304)
[2018-10-12] MEDS: VANCOMYCIN 50 MG/ML 60 ML/BOTTLE PO SCH ×4 (05:40→18:08)
[2018-10-12] MEDS: CHOLESTYRAMINE 4 GM PACK PO SCH ×2 (09:46→21:37)
[2018-10-12] MEDS: ENOXAPARIN 40 MG/0.4 ML SYRINGE SUBCUT SCH (09:46)
[2018-10-12] MEDS: miSOPROStol 200 MCG TABLET PO SCH ×4 (09:47→21:36)
[2018-10-12] MEDS: FUROSEMIDE 40 MG/4 ML VIAL IV SCH ×2 (09:47→16:50)
[2018-10-12] MEDS: ALFUZOSIN 10 MG TABLET PO SCH (09:48)
[2018-10-12] MEDS: MULTIVITAMIN (CENTRUM) TABLET PO SCH (09:48)
[2018-10-12] MEDS: FOLIC ACID 1 MG TABLET PO SCH (09:48)
[2018-10-12] MEDS: MAGNESIUM OXIDE 400 MG TABLET PO SCH ×2 (09:48→21:37)
[2018-10-12] MEDS: ISOSORBIDE DINITRATE 20 MG TABLET PO SCH ×3 (09:49→21:37)
[2018-10-12] MEDS: ASPIRIN 325 MG TABLET PO SCH (09:49)
[2018-10-12] MEDS: THIAMINE 100 MG TABLET PO SCH (09:49)
[2018-10-12] MEDS: CARVEDILOL 6.25 MG TABLET PO SCH ×2 (09:49→21:37)
[2018-10-12] MEDS: amLODIPine 10 MG TABLET PO SCH (09:49)
[2018-10-12] MEDS: PANTOPRAZOLE 40 MG TABLET PO SCH (09:49)
[2018-10-12] MEDS: DOCUSATE SODIUM 100 MG CAPSULE PO SCH ×2 (09:56→21:46)
[2018-10-12] MEDS: ACETYLCYSTEINE 600 MG CAPSULE PO SCH ×2 (09:58→21:37)
[2018-10-13] MEDS: VANCOMYCIN 50 MG/ML 60 ML/BOTTLE PO SCH ×5 (00:23→23:37)
[2018-10-13 04:49] LABS: ABG Base Excess 8.2 MMOL/L (-2.5-2.5); ABG HCO3 31.9 MMOL/L (20-26); ABG Oxygen Saturation 97.5 % (95-100); ABG PCO2 56.3 MM HG (35-48); ABG PH 7.401 (7.35-7.45); ABG PO2 98.5 MM HG (80-95); ABG TCO2 30.9 MMOL/L (23-27)
[2018-10-13 08:49] LABS: Calcium 8.7 MG/DL (8.5-10.1); Osmolality,Calculated 283.5 MOS/KG (273-304); Potassium 3.7 MMOL/L (3.5-5.1)
[2018-10-13] MEDS: ACETYLCYSTEINE 600 MG CAPSULE PO SCH ×2 (09:25→21:53)
[2018-10-13] MEDS: CHOLESTYRAMINE 4 GM PACK PO SCH ×2 (09:25→21:57)
[2018-10-13] MEDS: guaiFENesin/DM ER 600-30 MG TABLET PO PRN (09:25)
[2018-10-13] MEDS: ASPIRIN 325 MG TABLET PO SCH (09:25)
[2018-10-13] MEDS: ALFUZOSIN 10 MG TABLET PO SCH (09:25)
[2018-10-13] MEDS: miSOPROStol 200 MCG TABLET PO SCH ×4 (09:25→21:53)
[2018-10-13] MEDS: PANTOPRAZOLE 40 MG TABLET PO SCH (09:25)
[2018-10-13] MEDS: MAGNESIUM OXIDE 400 MG TABLET PO SCH ×2 (09:26→21:53)
[2018-10-13] MEDS: amLODIPine 10 MG TABLET PO SCH (09:26)
[2018-10-13] MEDS: ISOSORBIDE DINITRATE 20 MG TABLET PO SCH ×3 (09:26→21:54)
[2018-10-13] MEDS: THIAMINE 100 MG TABLET PO SCH (09:26)
[2018-10-13] MEDS: FOLIC ACID 1 MG TABLET PO SCH (09:26)
[2018-10-13] MEDS: CARVEDILOL 6.25 MG TABLET PO SCH ×2 (09:26→21:53)
[2018-10-13] MEDS: MULTIVITAMIN (CENTRUM) TABLET PO SCH (09:27)
[2018-10-13] MEDS: FUROSEMIDE 40 MG/4 ML VIAL IV SCH ×2 (09:30→16:41)
[2018-10-13] MEDS: DOCUSATE SODIUM 100 MG CAPSULE PO SCH ×2 (09:31→21:53)
[2018-10-13] MEDS: ENOXAPARIN 40 MG/0.4 ML SYRINGE SUBCUT SCH (09:31)
[2018-10-13] MEDS: POTASSIUM CHLORIDE 8 MEQ CAPSULE PO SCH (12:14)
[2018-10-14 03:16] LABS: Allen Test Positive; Pt O2 Delivery Device Room Air
[2018-10-14 03:17] LABS: ABG Base Excess 7.9 MMOL/L (-2.5-2.5); ABG HCO3 31.7 MMOL/L (20-26); ABG Oxygen Saturation 95.1 % (95-100); ABG PCO2 51.2 MM HG (35-48); ABG PH 7.425 (7.35-7.45); ABG PO2 75.3 MM HG (80-95); ABG TCO2 30.6 MMOL/L (23-27)
[2018-10-14] MEDS: VANCOMYCIN 50 MG/ML 60 ML/BOTTLE PO SCH ×4 (06:01→23:15)
[2018-10-14] MEDS: ENOXAPARIN 40 MG/0.4 ML SYRINGE SUBCUT SCH (09:01)
[2018-10-14] MEDS: FOLIC ACID 1 MG TABLET PO SCH (09:01)
[2018-10-14] MEDS: ACETYLCYSTEINE 600 MG CAPSULE PO SCH ×2 (09:02→21:53)
[2018-10-14] MEDS: FUROSEMIDE 80 MG TABLET PO SCH ×2 (09:02→16:11)
[2018-10-14] MEDS: miSOPROStol 200 MCG TABLET PO SCH ×4 (09:02→21:53)
[2018-10-14] MEDS: THIAMINE 100 MG TABLET PO SCH (09:03)
[2018-10-14] MEDS: amLODIPine 5 MG TABLET PO SCH (09:03)
[2018-10-14] MEDS: MULTIVITAMIN (CENTRUM) TABLET PO SCH (09:03)
[2018-10-14] MEDS: PANTOPRAZOLE 40 MG TABLET PO SCH (09:03)
[2018-10-14] MEDS: ISOSORBIDE DINITRATE 20 MG TABLET PO SCH ×3 (09:03→21:53)
[2018-10-14] MEDS: DOCUSATE SODIUM 100 MG CAPSULE PO SCH ×2 (09:04→21:53)
[2018-10-14] MEDS: ASPIRIN 325 MG TABLET PO SCH (09:04)
[2018-10-14] MEDS: MAGNESIUM OXIDE 400 MG TABLET PO SCH ×2 (09:04→21:53)
[2018-10-14] MEDS: CARVEDILOL 12.5 MG TABLET PO SCH ×2 (09:04→21:53)
[2018-10-14] MEDS: POTASSIUM CHLORIDE 8 MEQ CAPSULE PO SCH (09:04)
[2018-10-14] MEDS: ALFUZOSIN 10 MG TABLET PO SCH (09:04)
[2018-10-14] MEDS: CHOLESTYRAMINE 4 GM PACK PO SCH ×2 (09:05→21:55)
[2018-10-15 04:18] LABS: ABG Base Excess 6.7 MMOL/L (-2.5-2.5); ABG HCO3 30.5 MMOL/L (20-26); ABG Oxygen Saturation 95.2 % (95-100); ABG PCO2 49.6 MM HG (35-48); ABG PH 7.422 (7.35-7.45); ABG PO2 76.3 MM HG (80-95); ABG TCO2 29.4 MMOL/L (23-27); Allen Test Positive; Pt O2 Delivery Device Room Air
[2018-10-15] MEDS: VANCOMYCIN 50 MG/ML 60 ML/BOTTLE PO SCH ×2 (05:30→11:22)
[2018-10-15] MEDS: miSOPROStol 200 MCG TABLET PO SCH ×2 (09:02→11:22)
[2018-10-15] MEDS: ENOXAPARIN 40 MG/0.4 ML SYRINGE SUBCUT SCH (09:03)
[2018-10-15] MEDS: MAGNESIUM OXIDE 400 MG TABLET PO SCH (09:03)
[2018-10-15] MEDS: ALFUZOSIN 10 MG TABLET PO SCH (09:03)
[2018-10-15] MEDS: ASPIRIN 325 MG TABLET PO SCH (09:03)
[2018-10-15] MEDS: CARVEDILOL 12.5 MG TABLET PO SCH (09:03)
[2018-10-15] MEDS: FUROSEMIDE 80 MG TABLET PO SCH ×2 (09:03→15:50)
[2018-10-15] MEDS: PANTOPRAZOLE 40 MG TABLET PO SCH (09:03)
[2018-10-15] MEDS: amLODIPine 5 MG TABLET PO SCH (09:03)
[2018-10-15] MEDS: ISOSORBIDE DINITRATE 20 MG TABLET PO SCH (09:04)
[2018-10-15] MEDS: MULTIVITAMIN (CENTRUM) TABLET PO SCH (09:04)
[2018-10-15] MEDS: POTASSIUM CHLORIDE 8 MEQ CAPSULE PO SCH (09:04)
[2018-10-15] MEDS: THIAMINE 100 MG TABLET PO SCH (09:04)
[2018-10-15] MEDS: FOLIC ACID 1 MG TABLET PO SCH (09:04)
[2018-10-15] MEDS: CHOLESTYRAMINE 4 GM PACK PO SCH (09:06)
[2018-10-15] MEDS: DOCUSATE SODIUM 100 MG CAPSULE PO SCH (09:07)
[2018-10-15] MEDS: ACETYLCYSTEINE 600 MG CAPSULE PO SCH (09:14)
[2018-10-15 12:00] VITALS: BP 114/61
[2018-10-15] MEDS ORDERED: ISOSORBIDE DINITRATE 20 MG TABLET PO SCH (15:00)
== END 2018-10-15 16:51 | disposition home or self-care (01) | DRG 286 ==
LOC: EDUNIT# → EDBD → N.ED 12:04 → N.EDINP 15:36 → SUATTDRO 15:36 → N.2E 17:06 → N.4E 17:19 → N.CC 09-30 02:02 → N.TELES 10-04 14:25 → N.TELEN 10-08 11:51
PROVIDERS: ADMIT Internal Medicine; ATTEND Internal Medicine Infectious Disease

== ENCOUNTER 2020-12-17 13:48 | Inpatient (IN) ==
[2020-12-17 15:41] LABS: Basophils % 0.7 % (0.0-0.8); Eosinophils # 0.1 10*3/uL (0.0-0.87); Eosinophils % 3.1 % (0.00-10.9); Hematocrit 39.4 VOL% (42.0-52.0); Hemoglobin 12.4 GM/DL (14.0-18.0); Immature Granulocytes % 0.2 %; Immature Granulocytes Absolute 0.01 #; Lymphocytes # 0.8 10*3/uL (1.4-4.0); Lymphocytes % 19.6 % (21.2-54.2); Mean Corpuscular HGB Conc 31.5 GM/DL (32-36); Mean Corpuscular Volume 97.5 FL (87-102); Mean Platelet Volume 9.6 FL (9.6-12.0); Monocytes % 15.7 % (1.7-12.7); Neutrophils % 60.7 % (38.7-73.9); Platelet Count 239 T/CUMM (130-400); Red Blood Count 4.04 MC/CUMM (3.8-5.5); Red Cell Distribution Width 12.9 % (9.3-17.3); White Blood Count 4.1 T/CUMM (4-12)
[2020-12-17 16:14] LABS: Albumin 3.2 G/DL (3.4-5.0); Bilirubin,Total 1.2 MG/DL (0.2-1.0); Calcium 8.8 MG/DL (8.5-10.1); Osmolality,Calculated 280.4 MOS/KG (273-304); Potassium 3.8 MMOL/L (3.5-5.1)
[2020-12-17 16:17] LABS: Eosinophils 3 % (0-10); Lymphocytes 21 % (20-55); Platelet Estimate Adequate; Segmented Neutrophils 62 % (50-85); Total Cells Counted 100
[2020-12-17] MEDS ORDERED: DEXTROSE 50% 25 GM/50 ML VIAL IV PRN (17:00)
[2020-12-17] MEDS ORDERED: GLUCAGON 1 MG VIAL IM PRN (17:00)
[2020-12-17] MEDS ORDERED: VANCOMYCIN INJ 1,000 MG in SODIUM CHLORIDE 0.9% 250 ML IV STA (17:03)
[2020-12-17] MEDS: ENOXAPARIN 40 MG/0.4 ML SYRINGE SUBCUT SCH (18:00)
[2020-12-17] MEDS: carvediloL 12.5 MG TABLET PO SCH (21:04)
[2020-12-17] MEDS: SACUBITRIL/VALSARTAN 49-51 MG TABLET PO SCH (21:04)
[2020-12-17] MEDS: ISOSORBIDE DINITRATE 20 MG TABLET PO SCH (21:04)
[2020-12-17] MEDS: PIPERACILLIN/TAZOBACTAM 3,375 MG in SODIUM CHLORIDE 0.9% 100 ML IV SCH (21:04)
[2020-12-18] MEDS: PIPERACILLIN/TAZOBACTAM 3,375 MG in SODIUM CHLORIDE 0.9% 100 ML IV SCH ×4 (00:36→21:26)
[2020-12-18] MEDS: VANCOMYCIN INJ 2,000 MG in SODIUM CHLORIDE 0.9% 500 ML IV SCH ×2 (01:27→16:06)
[2020-12-18 06:31] LABS: Basophils % 0.5 % (0.0-0.8); Eosinophils # 0.1 10*3/uL (0.0-0.87); Eosinophils % 2.5 % (0.00-10.9); Hematocrit 34.4 VOL% (42.0-52.0); Hemoglobin 10.9 GM/DL (14.0-18.0); Immature Granulocytes % 0.2 %; Immature Granulocytes Absolute 0.01 #; Lymphocytes # 0.9 10*3/uL (1.4-4.0); Lymphocytes % 19.9 % (21.2-54.2); Mean Corpuscular HGB Conc 31.7 GM/DL (32-36); Mean Corpuscular Volume 95.6 FL (87-102); Monocytes % 16.2 % (1.7-12.7); Neutrophils % 60.7 % (38.7-73.9); Platelet Count 214 T/CUMM (130-400); White Blood Count 4.4 T/CUMM (4-12)
[2020-12-18 07:22] LABS: Calcium 8.1 MG/DL (8.5-10.1); Osmolality,Calculated 284.1 MOS/KG (273-304); Potassium 3.5 MMOL/L (3.5-5.1); Risk Ratio 2.3; Thyroid Stimulating Hormone 2.86 uIU/ml (0.358-3.74); VLDL CHOLESTEROL 11.4 MG/DL
[2020-12-18 07:25] LABS: Band Neutrophils 2 % (0-10); Eosinophils 5 % (0-10); Lymphocytes 19 % (20-55); Platelet Estimate Normal; Segmented Neutrophils 58 % (50-85); Total Cells Counted 100
[2020-12-18 07:26] LABS: Anisocytosis 1+; Macrocytosis Slight; Smudge Cells Few
[2020-12-18] MEDS: carvediloL 12.5 MG TABLET PO SCH ×2 (08:57→16:18)
[2020-12-18] MEDS: SACUBITRIL/VALSARTAN 49-51 MG TABLET PO SCH ×2 (08:58→20:16)
[2020-12-18] MEDS: ALFUZOSIN 10 MG TABLET PO SCH (08:58)
[2020-12-18] MEDS: ISOSORBIDE DINITRATE 20 MG TABLET PO SCH ×3 (08:58→20:16)
[2020-12-18] MEDS: FUROSEMIDE 80 MG TABLET PO SCH ×2 (08:58→16:08)
[2020-12-18] MEDS: PANTOPRAZOLE 40 MG TABLET PO SCH (08:59)
[2020-12-18] MEDS: ENOXAPARIN 40 MG/0.4 ML SYRINGE SUBCUT SCH (16:19)
[2020-12-19] MEDS: VANCOMYCIN INJ 2,000 MG in SODIUM CHLORIDE 0.9% 500 ML IV SCH ×2 (01:00→14:09)
[2020-12-19] MEDS: PIPERACILLIN/TAZOBACTAM 3,375 MG in SODIUM CHLORIDE 0.9% 100 ML IV SCH ×3 (04:45→20:38)
[2020-12-19 06:09] LABS: Basophils % 0.5 % (0.0-0.8); Eosinophils # 0.2 10*3/uL (0.0-0.87); Eosinophils % 3.8 % (0.00-10.9); Hematocrit 33.4 VOL% (42.0-52.0); Hemoglobin 10.8 GM/DL (14.0-18.0); Immature Granulocytes % 0.3 %; Immature Granulocytes Absolute 0.01 #; Lymphocytes # 0.8 10*3/uL (1.4-4.0); Lymphocytes % 20.5 % (21.2-54.2); Mean Corpuscular HGB Conc 32.3 GM/DL (32-36); Mean Corpuscular Volume 97.4 FL (87-102); Mean Platelet Volume 9.8 FL (9.6-12.0); Monocytes % 18.4 % (1.7-12.7); Neutrophils % 56.5 % (38.7-73.9); Platelet Count 216 T/CUMM (130-400); Red Blood Count 3.43 MC/CUMM (3.8-5.5); Red Cell Distribution Width 12.7 % (9.3-17.3); White Blood Count 3.9 T/CUMM (4-12)
[2020-12-19 06:24] LABS: Calcium 8.1 MG/DL (8.5-10.1); Osmolality,Calculated 278.5 MOS/KG (273-304); Potassium 3.6 MMOL/L (3.5-5.1)
[2020-12-19 08:24] LABS: Eosinophils 2 % (0-10); Lymphocytes 32 % (20-55); Platelet Estimate Normal; Segmented Neutrophils 52 % (50-85); Total Cells Counted 100
[2020-12-19] MEDS: ALFUZOSIN 10 MG TABLET PO SCH (08:40)
[2020-12-19] MEDS: ISOSORBIDE DINITRATE 20 MG TABLET PO SCH ×3 (08:40→20:36)
[2020-12-19] MEDS: SACUBITRIL/VALSARTAN 49-51 MG TABLET PO SCH ×2 (08:41→20:37)
[2020-12-19] MEDS: carvediloL 12.5 MG TABLET PO SCH ×2 (08:41→16:02)
[2020-12-19] MEDS: PANTOPRAZOLE 40 MG TABLET PO SCH (08:41)
[2020-12-19] MEDS: FUROSEMIDE 80 MG TABLET PO SCH ×2 (08:41→16:02)
[2020-12-19] MEDS: ENOXAPARIN 40 MG/0.4 ML SYRINGE SUBCUT SCH (16:02)
[2020-12-20 04:36] LABS: Basophils % 0.7 % (0.0-0.8); Eosinophils # 0.2 10*3/uL (0.0-0.87); Eosinophils % 4.9 % (0.00-10.9); Hematocrit 33.2 VOL% (42.0-52.0); Hemoglobin 10.5 GM/DL (14.0-18.0); Immature Granulocytes % 0.5 %; Immature Granulocytes Absolute 0.02 #; Lymphocytes # 0.9 10*3/uL (1.4-4.0); Lymphocytes % 21.1 % (21.2-54.2); Mean Corpuscular HGB Conc 31.6 GM/DL (32-36); Mean Corpuscular Volume 97.4 FL (87-102); Mean Platelet Volume 9.8 FL (9.6-12.0); Monocytes % 14.8 % (1.7-12.7); Platelet Count 214 T/CUMM (130-400); Red Blood Count 3.41 MC/CUMM (3.8-5.5); Red Cell Distribution Width 12.8 % (9.3-17.3); White Blood Count 4.3 T/CUMM (4-12)
[2020-12-20] MEDS: PIPERACILLIN/TAZOBACTAM 3,375 MG in SODIUM CHLORIDE 0.9% 100 ML IV SCH (05:00)
[2020-12-20 05:04] LABS: Calcium 8.1 MG/DL (8.5-10.1); Osmolality,Calculated 283.1 MOS/KG (273-304); Potassium 3.3 MMOL/L (3.5-5.1)
[2020-12-20] MEDS: PANTOPRAZOLE 40 MG TABLET PO SCH (08:54)
[2020-12-20] MEDS: ISOSORBIDE DINITRATE 20 MG TABLET PO SCH ×3 (08:55→21:27)
[2020-12-20] MEDS: SACUBITRIL/VALSARTAN 49-51 MG TABLET PO SCH ×2 (08:55→21:30)
[2020-12-20] MEDS: carvediloL 12.5 MG TABLET PO SCH ×2 (08:55→17:18)
[2020-12-20] MEDS: ALFUZOSIN 10 MG TABLET PO SCH (08:55)
[2020-12-20] MEDS: FUROSEMIDE 80 MG TABLET PO SCH ×2 (08:55→17:18)
[2020-12-20] MEDS ORDERED: POTASSIUM CHLORIDE 20 MEQ TABLET PO ONE (11:00)
[2020-12-20] MEDS: ceFAZolin 2,000 MG in PREMIX 1 EACH IV SCH ×2 (12:20→21:27)
[2020-12-20] MEDS: ENOXAPARIN 40 MG/0.4 ML SYRINGE SUBCUT SCH (17:18)
[2020-12-21] MEDS: ceFAZolin 2,000 MG in PREMIX 1 EACH IV SCH (04:00)
[2020-12-21] MEDS: SACUBITRIL/VALSARTAN 49-51 MG TABLET PO SCH (09:08)
[2020-12-21] MEDS: ISOSORBIDE DINITRATE 20 MG TABLET PO SCH (09:08)
[2020-12-21] MEDS: ALFUZOSIN 10 MG TABLET PO SCH (09:08)
[2020-12-21] MEDS: carvediloL 12.5 MG TABLET PO SCH (09:08)
[2020-12-21] MEDS: FUROSEMIDE 80 MG TABLET PO SCH (09:09)
[2020-12-21] MEDS: PANTOPRAZOLE 40 MG TABLET PO SCH (09:09)
[2020-12-21 11:31] VITALS: BP 141/93
== END 2020-12-21 12:45 | disposition home or self-care (01) | DRG 603 ==
LOC: N.ED 13:48 → SUATTDRO 17:00 → N.EDINP 17:00 → N.3E 19:36
PROVIDERS: ADMIT Internal Medicine; ATTEND Internal Medicine Geriatric Medicine